=== PATIENT | male | born 1965 | race Caucasian/White ===

== ENCOUNTER → 2020-11-13 | Outpatient (CLI) | payer MEDICAID ==
[~2020-11-13] MED LIST: C,E,1CAP2 PO; MULT-1116 PO; OMEG1CAP46 PO; UBID100C12 PO
== END | disposition home or self-care (01) ==
LOC: LAB 12:52
PROVIDERS: ATTEND Specialist
DX: Z01.812 Encounter for preprocedural laboratory examination (principal); Z20.828 Contact with and (suspected) exposure to other viral communicable diseases
CPT/HCPCS: 87426

== ENCOUNTER 2020-11-14 05:27 | Day surgery (SDC) | payer MEDICAID ==
[~2020-11-14] VITALS: Ht 180.3 cm; Wt 108.9 kg
[2020-11-14] MEDS ORDERED: LACTATED RINGERS 1,000 ML IV SCH (06:15)
[2020-11-14] MEDS ORDERED: MULT-1116 PO (06:26)
[2020-11-14] MEDS ORDERED: OMEG1CAP46 PO (06:26)
[2020-11-14] MEDS ORDERED: UBID100C12 PO (06:26)
[2020-11-14] MEDS ORDERED: C,E,1CAP2 PO (06:26)
[2020-11-14] MEDS ORDERED: INDOCYANINE GREEN 25 MG VIAL IV ONE (06:47)
[2020-11-14] MEDS ORDERED: SKIN ADHESIVE 0.7 GM EA TOP ONE (06:48)
[2020-11-14] MEDS ORDERED: BUPIVACAINE HCL/PF 0.5% (5MG/ML) 10ML ONE (06:48)
[2020-11-14] MEDS ORDERED: BACITRACIN 50,000 UNITS/VIAL ONE (06:48)
[2020-11-14] MEDS ORDERED: LIDOCAINE HCL 1% 20ML VIAL (Pyxis) INJ ONE ×2 (06:48→07:27)
[2020-11-14] MEDS ORDERED: FENTANYL CITRATE/PF 50MCG/ML 2ML VIAL ONE ×4 (07:27→14:46)
[2020-11-14] MEDS ORDERED: MIDAZOLAM HCL 2 MG/2 ML VIAL ONE (07:27)
[2020-11-14] MEDS ORDERED: ROCURONIUM BROMIDE 10MG/ML VIAL 5ML IV ONE ×3 (07:27→10:24)
[2020-11-14] MEDS ORDERED: PROPOFOL 200MG/20ML VIAL IV ONE (07:27)
[2020-11-14] MEDS ORDERED: CEFAZOLIN SODIUM 1000MG/VIAL ONE (08:22)
[2020-11-14] MEDS ORDERED: HYDROMORPHONE HCL/PF 2MG/ML (OR) ONE (08:32)
[2020-11-14] MEDS ORDERED: DEXAMETHASONE 4MG/ML 1ML VIAL ONE (09:03)
[2020-11-14] MEDS ORDERED: ONDANSETRON HCL 4MG/2ML INJ ONE (09:03)
[2020-11-14] MEDS ORDERED: KETOROLAC 30MG/ML VIAL ONE (09:27)
[2020-11-14] MEDS ORDERED: NEOSTIGMINE METHYLSULFATE 1MG/ML 10 ML VIAL ONE (13:00)
[2020-11-14] MEDS ORDERED: GLYCOPYRROLATE 0.2 MG/ML 2ML VIAL ONE (13:00)
[2020-11-14] MEDS ORDERED: FENTANYL CITRATE/PF 50MCG/ML 2ML VIAL IV PRN (13:30)
[2020-11-14] MEDS ORDERED: MEPERIDINE HCL/PF 25MG/ML CPJ IV PRN (13:30)
[2020-11-14] MEDS ORDERED: ONDANSETRON HCL 4MG/2ML INJ IV PRN (13:30)
[2020-11-14] MEDS ORDERED: HYDROMORPHONE HCL/PF 2MG/ML CPJ IV PRN (13:30)
[2020-11-14] MEDS ORDERED: SODIUM CHLORIDE 0.9% 10ML VIAL ONE (13:48)
[2020-11-14] MEDS ORDERED: ESMOLOL HCL 10MG/ML 10ML VIAL IV ONE (14:15)
[2020-11-14 15:32] VITALS: BP 142/56
== END 2020-11-14 17:45 | disposition home or self-care (01) ==
LOC: OR 05:27
PROVIDERS: ATTEND Specialist
DX: K40.90 Unilateral inguinal hernia, without obstruction or gangrene, not specified as recurrent (principal); E78.00 Pure hypercholesterolemia, unspecified; Z85.038 Personal history of other malignant neoplasm of large intestine; Z79.899 Other long term (current) drug therapy; Z98.890 Other specified postprocedural states
CPT/HCPCS: 49650; C1781; J0690; J1100; J1170; J1885; J2175; J2250; J2405; J2704; J2710; J3010; J3490; Q9957; S2900